=== PATIENT | female | born 1955 | race Caucasian/White ===

== ENCOUNTER 2017-08-03 14:52 | Inpatient (IN) | payer OTHER ==
[~2017-08-03] VITALS: Ht 165.1 cm; Wt 67.2 kg
[2017-08-03] MEDS ORDERED: PERCOCET 5-3251 EACH PO (15:33)
[2017-08-03] MEDS ORDERED: ULTRAM50 MG PO (15:33)
[2017-08-03] MEDS ORDERED: PROCHLORPERAZIN10 MG PO (15:36)
[2017-08-03] MEDS ORDERED: CYCLOBENZAPRINE5 MG PO (15:37)
[2017-08-03] MEDS ORDERED: FLOVENT DISKUS50 MCG INH (17:58)
[2017-08-03] MEDS ORDERED: K-TAB ER20 MEQ PO (18:08)
--- NOTE | 2017-08-03 18:56 | NUR ---
PATIENT ADMITTED TO MEDICAL FLOOR VIA STRETCHER. SHE IS ON 2L NC WITH A DRY COUGH UPON ARRIVAL WITH NO C/O SOB. SHE IS ORIENTED TO HER ROOM AND MOVES HERSELF TO THE BED. WEIGHT IS OBTAINED FROM THE BED AND VITALS TAKEN. PATIENT IS ALERT AND ORIENTED. CLEAR LIQUID TRAY ORDERED FOR HER AND SHE IS REQUESTING PAIN MEDICATION FOR PAIN ALL OVER 10/. TELE AND PULSE OX PLACED ON THE PATIENT.
--- NOTE | 2017-08-03 19:02 | EKG ---
[facility] [address] [place] [address] Signed Atrial flutter with variable AV block Left axis deviation Pulmonary disease pattern Marked ST abnormality, possible inferior subendocardial injury Abnormal ECG No previous ECGs available Confirmed by BATOOL ESTRADA MD ([id number]) on 08/03/2017 7:02:13 PM Electronically Signed By: BATOOL ESTRADA MD 08/03/17 190 PATIENT NAME: MICKEY BALDERAS Electrocardiogram DATE OF : 57 PHYSICIAN: BATOOL ESTRADA MD REPORT #: [id number] REPORT IS CONFIDENTIAL AND NOT TO BE RELEASED WITHOUT AUTHORIZATION
--- NOTE | 2017-08-03 20:00 | NUR ---
PT DX +INFLUENZA A. PLACED ON RESPIRAORY/DROPLET ISOLATION , PROCEDURE EXPLAINED TO PT, STATED UNDERSTANDING. WILL GET A MAGNESIUM RIDER AND IV 40MEQ K AT 250CC/HR SOON AVAILABLE. O2 1L/NC. NO OTHER REQUESTS. TOLERATING SMALL AMOUNTS CLEAR LIQUIDS
--- NOTE | 2017-08-04 02:08 | NUR ---
PT UP TO BSC, VOIDED DARK YELLOW URINE. SOB WITH EXERTION PRESENT, O2 2L N/C, CONT PULSE OX IN PLACE, SATS DROPPED TO 88 WHEN UP. BACK TO BED. SATS 91%. RESP 18. C/O MOIST, NON PROD HACKY COUGH. MEDICATED WITH TESSALON PEARLS. NO C/O ADVERSE REACTION TO MAG RIDER AND IL BOLUS OF 40MEQ K. NO C/O N/V. COOP WITH ASSESSMENT
--- NOTE | 2017-08-04 05:57 | NUR ---
PT CURRENTLY AWAKE. HOB 45o, O2 2L N/C IN PLACE, CONT PULSE OX IN PLACE, PT'S SATS DROPPED TO 88% WHEN UP TO BSC, NONSUSTAINED AND IT INMEDIATELY WENT UP TO 92-94% ONCE IN BED. IT CONTINUES TO BE AROUND 92-94%, RESP 20-24. COARSE LUNG SOUNDS BILAT. PT GETS DUONEBS TX. WAS MEDICATED WITH PERCOCET PER C/O RIB PAIN FROM FREQUENT COUGHING AND GENERALIZED PAIN, MEDICATED WITH TESSALON PEARLS FOR COUGH TOO. BOTH EFFECTIVE. PT HAS TOLERATED CLEAR LILQUIDS WELL. NO N/V. NICODERM PATCH TO LEFT ARM APPLIED PT IS A HEAVY SMOKER. HAS TOLERATED WELL. PT TURNS SELF IN BED. UP WITH ONE SBA. SOB WITH EXERTION NOTED. PT RECEIVED FIRST DOSE OF TAMIFLU LAST NIGHT. CONTINUES ON DROPLET ISOLATION. PT COOPERATIVE WITH PROCEDURES. NO REQUESTS AT THIS TIME
--- NOTE | 2017-08-04 07:08 | NUR ---
PT SLEEPING SOUNDLY. ON 2L O2 VIA NC, OXYGEN SATURAION LEVEL 93% PER PULSE OX. HAS D5LR INFUSING AT 125 CC/HR. RECIEVED BEDSIDE REPORT FROM JONATHON PADILLA.
--- NOTE | 2017-08-04 08:12 | NUR ---
took patient to the bathroom respiratory therapitsts was in room about to give breathing treatment.
--- NOTE | 2017-08-04 08:21 | NUR ---
PT REPORTED 8/10 GENERALIZED PAIN, GAVE SCHEDULED TRAMADOL. PT SITTNG UP IN BED, JUST WORKED WITH RESPIRATORY THERAPIST, BAYLEE.
--- NOTE | 2017-08-04 10:36 | NUR ---
PT C/O 03/21 GENERALIZED PAIN, ALSO REQUESTED TESSLON SUSAN FOR COUGH. GAVE PERCOCET 1 TAB, AND TESSLON SUSAN 1 TAB. PT DENIED OTHER NEEDS.
--- NOTE | 2017-08-04 12:04 | NUR ---
PT SITTING UP IN BED. REPORTED GENERALIZED PAIN HAS IMPROVED, IS TOLERABLE AT THIS TIME. DENIED NEEDS AT THIS TIME. IS RECEIVING NEB TX.
--- NOTE | 2017-08-04 13:52 | NUR ---
PT IN BED RESTING WITH EYES CLOSED. DENIED PAIN OR DISCOMFORT.
--- NOTE | 2017-08-04 17:41 | NUR ---
PT UP TO BATHROOM WITH STANDBY ASSIST FOR HELP WITH CORDS FOR IV POLE. PT STEADY ON FEET. ASSISTED PT IN ORDERING DINNER. PT DENIED OTHER NEEDS.
--- NOTE | 2017-08-04 18:03 | NUR ---
PT C/O NAUSEA. NO ANTI NAUSEA MEDICATION ORDERS AVAILABLE. NOTIFIED DR. ESTRADA OF THIS, WHO STATED THAT HE WOULD PUT IN AN ORDER FOR THIS.
--- NOTE | 2017-08-04 18:04 | NUR ---
PT DOING FAIRLY WELL, TOLERATED PO INTAKE WELL. VOIDING QUANTITY SUFFICIENT URINE, AND HAD A BM X 1. HAS A NON PRODUCTIVE COUGH, WHICH PT TOOK TESSELON SUSAN X 1 PRN FOR. PT HAS GENERALIZED PAIN, TAKES SCHEDULED ULTRAM WELL PRN PERCOCET FOR THIS. HAS D5LR INFUSING AT 60 CC/HR. IS ON DROPLET PRECAUTIONS, AND IS TAKING TAMIFLU FOR INFLUENZA A +. REMAINS ON 2L O2 VIA NC, ON CONTINUOUS PULSE OX.
--- NOTE | 2017-08-04 20:24 | NUR ---
PT AWAKE WATCHING TV, STATED DECREASED COUGH TO VERY INFRFEQUENT NOW. MEDICATED WITH SCHEDULED TRAMADOL FOR PAIN. 02 2L/NC IN PLACE. COOP WITH ASSESSMENTIVF INFUSING W/O PROBLEMS
--- NOTE | 2017-08-05 00:39 | NUR ---
RESTING, NO DISTRESS, O2 IN PLACE, IVF INFUSING
--- NOTE | 2017-08-05 02:24 | NUR ---
PT UP TO BRP, USES ONE PERSON ASSIST, VOIDED CLEAR YELLOW URINE. SOB WITH EXERTION PRESENT. CONT PULSE OX IN PLACE, PT DESATTED DOWN TO 77% NON SUSTAINED, THEN WENT UP TO 88% AND 90% AFTER A FEW CDB, BACK TO BED TOLERATED
--- NOTE | 2017-08-05 02:53 | NUR ---
MEDICATED WITH ONE PERCOCET C/O 8/10 RIBS AREA AND GENERALIZED PAIN, AWAKE WATCHING TV. O2 IN [LACE SATS 91% R18
--- NOTE | 2017-08-05 05:55 | NUR ---
UP TO BRP X2, VOIDED. BACK TO BED. TOLERATES WELL. O2 3L N/C IN PLACE, CONT PULSE OX SATTING AT 90-93%. LUNGS STILL COARSE SOUNDS, RECEIVED ONE PRN TX. PT HELPS WITH TURNING SELF. MEDICATED WITH ONE PERCOET PER C/O GENERALIZED PAIN. IVF INFUSINF W/O PROBLES. CONTINUES ON DROPLET ISOLATION. TOLERATES FLUIDS W/O PROBLEMS.
--- NOTE | 2017-08-05 07:36 | NUR ---
PT SITTING UP IN BED ALERT NO COMPLAINTS AT THIS TIME, REQUEST CUP OF ICE WHEN STAFF RETURNS TO ROOM. NO DISTRESS NOTED PT HAS OXYGEN ON 3L, OXYGEN SATURATION 91% PER CONT. BEDSIDE OXIMETRY.
--- NOTE | 2017-08-05 09:20 | NUR ---
PT ON 1L OXYGEN, UP WITH CAPTAIN ROOM SERVICE TO BATHROOM AND THEN SHOWER LINENS CHANGED. PT REQUESTED TO HAVE PERCOCET FOR PAIN WELL SCHEDULED AM MED PASS.
--- NOTE | 2017-08-05 10:44 | NUR ---
PT REPORTS PAIN HAS IMPROVED BUT REPORTS MILD NAUSEA. PT ADMINISTERED 4MG I.V. ZOFRAN. PT DID NOT WANT TO EAT BREAKFAST THIS AM, PT WAS GIVEN CLEAR ENSURE AND PUDDING TO TAKE PAIN MEDICATIONS WITH. CRACKERS AT BEDSIDE. PT AGREES TO ORDER SOUP FOR LUNCH.
--- NOTE | 2017-08-05 11:15 | NUR ---
RESPIRATORY THERAPIST QUALIFIED PT FOR HOME OXYGEN AT 3L. NOTIFIED
--- NOTE | 2017-08-05 13:32 | NUR ---
PT OFF THE UNIT FOR CHEST XRAY AT THIS TIME
--- NOTE | 2017-08-05 13:48 | NUR ---
PT BACK FROM CHEST XRAY, REMOVED HER MASK/ISOLATION GOWN/GLOVES PT BACK TO BED. I.V. FLUIDS RE-STARTED.
--- NOTE | 2017-08-05 18:20 | NUR ---
PT HAS BEEN UP TO SHOWER THIS AM STANDBY ASSIST. HAD CXR TODAY. REMAINS ON 3L OXYGEN, WAS QUALIFIED FOR HOME OXYGEN TODAY. HAS HAD MULTIPLE NAUSEA EPISODES, ZOAN ODT NOW SCHEDULED WITH COMPAZINE PRN. SCHEDULED NEBS. SHE HAS HAD PERCOCET PRN X2 TODAY. COOPERATIVE WITH CARE PLAN. IVF INFUSING WNL. POSSIBLE D/C TOMORROW. NEW PHYSICAL THERAPY ORDER TODAY WELL. TIRES AND WEAK QUICKLY WITH ACTIVITY
--- NOTE | 2017-08-05 22:10 | NUR ---
PT LAYING IN BED, APPEARED ASLEEP WHEN ENTERING ROOM. WOKE EASILY TO VOICE. PT ALERT AND ORIENTED X4. PLEASENT DEMEANOR. REPORTS FEELING BETTER THAN YESTERDAY. REPORTS SHE HAD NAUSEA ALL DAY TODAY, BUT DENIES NAUSEA AT THIS TIME. NEBS GIVEN PER RT. CONTINUOUS PULSE OXIMETER IN PLACE. RATES PAIN AT 7/10, STATES "ITS ALWAYS ABOUT A 7/10," GAVE SCHEDULED GABAPENTIN AND ULTRAM FOR PAIN. PT HAS NO FURTHER NEEDS. CALL LIGHT IN REACH.
--- NOTE | 2017-08-06 00:01 | NUR ---
PT APPEARS TO BE SLEEPING. RR WNL AND UNLABORED. LIGHTS AND TV OFF IN ROOM.
--- NOTE | 2017-08-06 04:07 | NUR ---
PT APPEARS ASLEEP.
--- NOTE | 2017-08-06 06:00 | NUR ---
PT SLEPT ENTIRE SHIFT. GAVE PERCOCET FOR PAIN BEGINNING OF SHIFT. PT ALERT AND ORIENT X4. USES CALL LIGHT APPROPRIATLY. DROPLET PRECAUTIONS UTILIZED.
--- NOTE | 2017-08-06 10:10 | NUR ---
PT AWAKE IN BED. TOOK PT TO THE BR. TOOK BRK TRAY. UPDATED WB. FRESH ICE WATER. AM CARE.
[2017-08-06] MEDS ORDERED: SYNTHROID75 MCG PO (10:41)
[2017-08-06] MEDS ORDERED: LIPITOR40 MG PO (10:42)
[2017-08-06] MEDS ORDERED: NORVASC10 MG PO (10:42)
[2017-08-06] MEDS ORDERED: BUTALB-ACETAMI1 EACH PO (10:43)
[2017-08-06] MEDS ORDERED: NEURONTIN800 MG PO (10:45)
[2017-08-06] MEDS ORDERED: MYRBETRIQ50 MG PO (10:46)
[2017-08-06] MEDS ORDERED: FLONASE ALLERG9.9 ML NAS (10:47)
--- NOTE | 2017-08-06 10:47 | NUR ---
MED REC COMPLETE WITH BIMART MEDICATION REFILL LIST.
--- NOTE | 2017-08-06 12:46 | NUR ---
pt finishing lunch. pain 7/10 tramedol given. doesnt need to use restroom. [facility]
--- NOTE | 2017-08-06 13:26 | NUR ---
PT IN BED AWAKE. SET PT UP FOR LUNCH. PICKED UP ROOM LINEN CHANGE.
--- NOTE | 2017-08-06 14:03 | NUR ---
ROUNDED WITH DR ESTRADA. TALKED ABOUT STORY OF CARE, PHYSICAL THERAPY AND DISCHARGE PLAN. PLAN ON DICHARGING TOMORROW AFTET PT VIST.
[2017-08-06] MEDS ORDERED: TAMIFLU75 MG PO (14:06)
[2017-08-06] MEDS ORDERED: NICOTINE PATCH1 EAC1 TD (14:06)
--- NOTE | 2017-08-06 16:10 | NUR ---
PATIENTS NEEDS MEET. EDUCATED ON INCENTIVE SPIROMETER AND CPT. PT TOLLERATED WELL. COUGHING UP THICK MUCOUS. PAIN 02/18 GAVE PERCECET. WILL CONTINUE TO MONITOR.
--- NOTE | 2017-08-06 19:01 | NUR ---
PT UP WITH PHYSICAL THERAPY. SBA. WITH ACTIVITY PT WAS SHORT OF BREATH AND DESATTED TO 88% ON 3 L O2. TOLLERATING REG DIET. NO NAUSEA. VOIDING Q.S. PLAN FOR DC TOMORROW AFTER PHYSICAL THERAPY VISIT.
--- NOTE | 2017-08-06 21:59 | NUR ---
PT LAYING IN BED, WATCHING TV. NO APPARENT DISTRESS AT THIS TIME. O2 SAT MID 90'S ON 3L VIA NC. PT UP TO BATHROOM TO VOID, SOB ON EXERTION, BUT IS BETTER TONIGHT THAN LAST NIGHT. PT ALERT AND ORIENTED X4. COOPERATIVE AND PLEASENT. RATES PAIN AT 7/10, SCHEDULED AND PRN PAIN MEDS GIVEN. DROPLET PRECAUTIONS USED. FRESH ICE WATER GIVEN. NO FURTHER NEEDS. CALL LIGHT IN REACH.
--- NOTE | 2017-08-07 00:15 | NUR ---
PT HAS SLEPT MAJORITY OF SHIFT SO FAR. CURRENTLY SLEEPING AT THE MOMENT. RR WNL AND UNLABORED. O2 SAT 91% ON 3L VIA NC. HR 74.
--- NOTE | 2017-08-07 04:48 | NUR ---
PT APPEARS TO BE SLEEPING. OXYGEN SAT 94% ON 3L VIA NC.
--- NOTE | 2017-08-07 04:57 | NUR ---
PT SLEPT ENTIRE SHIFT. NO NEW COMPLAINTS. PT REPORTS THAT SHE IS "STARTING TO FEEL BETTER." REQUIRES 3L VIA NC TO MAINTAIN OXYGEN LEVELS. SOB ON EXERTION. CONTINUOUS PULSE OXIMETER IN PLACE. DROPLET PRECAUTIONS. USES CALL LIGHT APPROPRIATLY.
--- NOTE | 2017-08-07 05:34 | NUR ---
PT AWAKE, REQUESTED APPLE JUICE. GAVE TO HIM. NO OTHER NEEDS AT THIS TIME.
--- NOTE | 2017-08-07 06:52 | NUR ---
ASSISTED PATIENT TO BATHROOM, SBA/NON-SLIP SOCKS. NOW RESTING COMFORTABLY IN BED AGAIN. DUE TO O2 SATURATION IS LOW 80s, INCREASED PATIENT'S O2 TO 4L VIA NC, INSTRUCTED PATIENT TO TAKE DEEP BREATHES. O2 SATURATION NOW >88%, DECREASED O2 BACK TO 2L. DENIES FURTHER NEEDS AT THIS TIME. CALL LIGHT WITHIN REACH.
--- NOTE | 2017-08-07 06:59 | NUR ---
pt rates generalized body pain at 6/10, gave percocet prn for pain.
--- NOTE | 2017-08-07 07:00 | NUR ---
report given from yadira curiel. patient resting comfortable in bed. no other needs at this time.
--- NOTE | 2017-08-07 08:07 | NUR ---
PATIENT SITTING UP IN BED. HANDS AND FACE WASHED. PATIENT REFUSED SHOWER DUE TO POSSIBLE DISCHARGE TODAY. FRESH ICE WATER GIVEN. ENSURE AND APPLE SAUCE GIVEN PER PATIENT REQUEST. CALL BUTTON IN REACH. NO OTHER NEEDS AT THIS TIME.
--- NOTE | 2017-08-07 09:26 | NUR ---
rt in room to qualify for home oxygen. switched to oxy maskper patients request. c/o nasal discomfort. sating 92 percent on oxymask at 3 l
--- NOTE | 2017-08-07 10:13 | NUR ---
PT IN ROOM WITH PATIENT. UPDATED TRACEY ABOUT QUALIFIED FOR HOME OXYGEN AT 3-4L. PLAN TO AMBULATE IN [place]. PATIENT CONTINUES TO HAVE A PRODUCTIVE HACKY COUGH. PATIENT REPORTS NO PAIN WITH THE COUGH. BACK AND LEGS HURTING. PATIENT REPORTS IT IS A PAIN THAT SHE HAS AT HOME. NO NEW PAINS. NO FEVER OR CHILLS REPORTED.
[2017-08-07] MEDS ORDERED: TESSALON PERLE100 MG PO (10:40)
--- NOTE | 2017-08-07 10:44 | NUR ---
rounded with dr. gupta. plan to discharge today. qualified for home oxygen at 3-4 l .
--- NOTE | 2017-08-07 11:18 | NUR ---
updated patient on discharge plan. patient to go home on oxygen. no nebs ordered for home. prescriptions to pharmacy. stopped iv fluids at this time. pharmacy to home talk with patient about discharge medications. oxy given for 6/10 pains in back and lower legs. patient also given scheduled zofran. to be here to assist patient at 1300
--- NOTE | 2017-08-07 11:22 | NUR ---
FAXED CHART NOTES TO [facility] FOR PT FOR O2 INCLUDED FACESHEET, ORDER, RT HOME QUALIFIER, ER NOTES, H AND P, PROG NOTES IMAGING, LABS, PT. EVAL AND NOTES. CALLED AND TALKED WITH SARAH ABOUT THIS ORDER TOLD HER PT WAS LEAVING HOSPITAL ABOUT 1300 TODAY. ALSO FAXED CHART NOTES TO [facility], INCLUDING FACESHEET, ORDER, H AND P, DC SUMMARY, PT, OT, AND ST EVALS AND NOTES
--- NOTE | 2017-08-07 11:42 | NUR ---
PHARMACY IN ROOM TO GO OVER MEDICATIONS.
== END 2017-08-07 13:30 | disposition home or self-care (01) | DRG 193 ==
LOC: ED 14:52 → MS 18:13
PROVIDERS: ADMIT Internal Medicine
DX: J09.X2 Influenza due to identified novel influenza A virus with other respiratory manifestations (principal); J96.21 Acute and chronic respiratory failure with hypoxia; I48.92 Unspecified atrial flutter; E87.6 Hypokalemia; R53.81 Other malaise; I10 Essential (primary) hypertension; E03.9 Hypothyroidism, unspecified; E78.5 Hyperlipidemia, unspecified; G62.9 Polyneuropathy, unspecified; Z66 Do not resuscitate; F17.210 Nicotine dependence, cigarettes, uncomplicated
CPT/HCPCS: 36415; 71020; 80048; 80053; 83735; 83880; 84484; 85025; 87502; 93005; 93010; 94640; 94668; 94760; 94761; 94762; 97110; 97116; 97162; 99285; 99407; J0780; J1650; J2405; J3475; J7120

== ENCOUNTER 2021-10-16 09:41 | Emergency (ER) | payer MEDICARE ==
[~2021-10-16] VITALS: Ht 165.1 cm; Wt 55.9 kg
--- NOTE | ~2021-10-16 | EKG ---
[facility] [address] [place], [place] [address] Draft EK completed, results pending confirmation PATIENT NAME: BALDERASMICKEY Electrocardiogram DATE OF : 57 PHYSICIAN: PRELIMINARY REPORT #: [id number] REPORT IS CONFIDENTIAL AND NOT TO BE RELEASED WITHOUT AUTHORIZATION
[~2021-10-16 09:41] MED LIST: BUTALB-ACETAMI1 EACH PO; CYCLOBENZAPRINE5 MG PO; FLONASE ALLERG9.9 ML NAS; FLOVENT DISKUS50 MCG INH; K-TAB ER20 MEQ PO; LIPITOR40 MG PO; MYRBETRIQ50 MG PO; NEURONTIN800 MG PO; NICOTINE PATCH1 EAC1 TD; NORVASC10 MG PO; PERCOCET 5-3251 EACH PO; PROCHLORPERAZIN10 MG PO; SYNTHROID75 MCG PO; TAMIFLU75 MG PO; TESSALON PERLE100 MG PO; ULTRAM50 MG PO
--- OUTSIDE RECORDS SUMMARY | 2021-10-16 09:44 | XMS ---
PreManage Notification: MICKEY BALDERAS Security [employer] Events No recent Security Events currently on file CRITERIA MET - GAELP CARE PROVIDERS [facility]ACH[facility] Current PHONE: [phone] Florencia has no Care Guidelines for this patient. EKaren VISIT COUNT (12 MO.) 1 Sanjana Garcia M.C. 1 SETH Girard TOTAL 2 NOTE: Visits indicate total known visits. ED/UCC VISIT TRACKING (12 MO.) 10/16/2021 09:42 [facility] [place] TYPE: Emergency COMPLAINT: - [facility] DIAGNOSES: - infected bed sore - Wound - Pressure ulcer of left buttock, stage 2 - Local infection of the skin and subcutaneous tissue, unspecified - Other injury of unspecified body region, initial encounter INPATIENT VISIT TRACKING (12 MO.) No inpatient visits to display in this time frame [email or web address]
[2021-10-16] MEDS ORDERED: FENTANYL1 EACH TD (10:00)
[2021-10-16] MEDS ORDERED: ONDANSETRON HCL8 MG PO (10:00)
== END 2021-10-16 14:37 | disposition home or self-care (01) ==
LOC: ED 09:41
DX: T40.2X1A Poisoning by other opioids, accidental (unintentional), initial encounter (principal); I48.0 Paroxysmal atrial fibrillation; I10 Essential (primary) hypertension; Z85.3 Personal history of malignant neoplasm of breast; E78.5 Hyperlipidemia, unspecified; M81.0 Age-related osteoporosis without current pathological fracture; E03.9 Hypothyroidism, unspecified; F17.200 Nicotine dependence, unspecified, uncomplicated; Z88.8 Allergy status to other drugs, medicaments and biological substances; Z88.1 Allergy status to other antibiotic agents; Z79.891 Long term (current) use of opiate analgesic; Z79.899 Other long term (current) drug therapy
CPT/HCPCS: 36415; 80048; 83735; 85025; 93005; 93010; 96365; 96375; 99284-25; J2405; J3475; J7030